=== PATIENT | female | born 1940 | race African-American/Black ===

== ENCOUNTER 2018-03-18 16:00 | Emergency (ER) | payer OTHER ==
[~2018-03-18] VITALS: Ht 165.1 cm; Wt 71.0 kg
[2018-03-18 18:12] LABS: BASOPHILS % 0.4 % (0.0-2.0); EOSINOPHILS % 0.2 % (0.0-5.0); HEMATOCRIT. 35.8 % (36.0-48.0); HEMOGLOBIN. 11.7 g/dL (12.0-16.0); LYMPHOCYTES % 15.9 % (20.0-50.0); MEAN CORPUSCULAR HEMOGLOBIN 28.1 pg (28.0-32.0); MEAN CORPUSCULAR VOLUME 85.8 fL (81.0-99.0); MEAN PLATELET VOLUME 8.7 fl (7.4-10.4); MONOCYTES % 9.6 % (2.0-8.0); NEUTROPHILS % 73.9 % (40.0-76.0); PLATELET 201 x1000/uL (130-400); RED BLOOD CELL COUNT 4.17 mill/uL (4.2-5.4); RED CELL DISTRIBUTION WIDTH 16.4 % (11.6-14.6)
[2018-03-18 18:16] LABS: CHLORIDE 108 mEq/L (98-107); PROTHROMBIN TIME 10.4 sec (9.4-11.6)
[2018-03-18 19:47] VITALS: BP 143/73
== END 2018-03-18 19:49 | disposition home or self-care (01) ==
LOC: ER 17:14 → CANBEDREQ 19:59
DX: E11.65 Type 2 diabetes mellitus with hyperglycemia (principal); T46.5X5A Adverse effect of other antihypertensive drugs, initial encounter; D64.9 Anemia, unspecified; I10 Essential (primary) hypertension; R55 Syncope and collapse; R00.0 Tachycardia, unspecified; Y92.89 Other specified places as the place of occurrence of the external cause
CPT/HCPCS: 36415; 71045; 80053; 83880; 84484; 85025; 85610; 93005; 99285